=== PATIENT | female | born 1960 | race Caucasian/White ===

== ENCOUNTER 2017-04-08 18:27 | Emergency (ER) | payer OTHER ==
[~2017-04-08 18:27] MED LIST: ALBU1AER INH; BENA25TA8 PO; CYCL-36 PO; DICL50TA3 PO; LORA10TA PO; METF500 PO; NEXI40CA PO; OXYM10 PO; OXYM40TA PO; PROM25TA5 PO; VALI10TA PO
[2017-04-08 18:38] VITALS: BP 124/76; PULSE 90; RESP 18; TEMP 98.3; O2SAT 100
[2017-04-08] MEDS ORDERED: methylPREDNISolone SOD SUCC 125 MG/2 ML VIAL IV PUSH ONE (18:45)
[2017-04-08] MEDS ORDERED: SODIUM CHLORIDE 0.9% FLUSH 10 ML FLUSH IVF PRN (18:45)
--- NOTE | 2017-04-08 18:45 | PD ---
HPI Chief Complaint: Cold / Flu Symptoms Time Seen by Provider: 18:41 Travel History International Travel<30 days: No Contact w/Intl Traveler<30days: No Traveled to known affect area: No History of Present Illness HPI This 56-year-old woman female is complaining of cough and shortness of breath. She has a long history of asthma. She also smokes cigarettes. She was exposed to a youngster that had a respiratory infection and started coughing. She's had a persistent hacking cough. PFSH Past Medical History Hx Anticoagulant Therapy: No Asthma: Yes Anxiety: Yes Depression: Yes High Cholesterol: Yes COPD: Yes Diabetes: Yes Diminished Hearing: No GERD: Yes Herniated Disk: Yes Hypertension: Yes Kidney Stones: Yes Musculoskeletal: Yes (HERNIATED DISC) Respiratory: Yes (COPD, ASTHMA) Migraines: Yes Pneumonia: Yes Thyroid Disease: Yes ("BORDERLINE") Triglycerides - High: Yes : 7 Para: 3 : 4 Tubal Ligation: Yes Past Surgical History Hysterectomy: Yes Oral Surgery: Yes Tonsillectomy: Yes Social History Alcohol Use: No Tobacco Use: Yes (1 PPD) Substance Use: No Allergies-Medications (Allergen,Severity, Reaction): Coded Allergies: butorphanol (Unverified Adverse Reaction, Intermediate, 03/10/17) "MAKES ME WEIRD" Reported Meds & Prescriptions Reported Meds & Active Scripts Active Reported Proair Hfa 8.5 GM Inh (Albuterol Sulfate) 90 Mcg/Act Aer 2 Puff INH Q4HR PRN 108 mcg/actuation Day Time Multi-Symptom (Ywsqcmmpsccpseik-Daswumjcgqedd-Uozlubcd) 10-5-325 Mg Cap 2 Cap PO Q4H PRN Nyquil Severe Cold/Flu Liq (Pnrhsdfgbfazi-Ocgnodogcz-OX-Apap Liq) 5-6.25-10-325 Mg/15 Ml Liq Allergy Relief (Loratadine) 10 Mg Tab 10 Mg PO DAILY Phenergan (Promethazine HCl) 25 Mg Tablet 25 Mg PO TID PRN Flexeril (Cyclobenzaprine HCl) 10 Mg Tab 10 Mg PO BID Oxymorphone (Oxymorphone HCl) 10 Mg Tab 10 Mg PO Q4H PRN Victoza Inj (Liraglutide Inj) 18 Mg/3 Ml Pen 1.8 Mg SQ HS Metformin (Metformin HCl) 500 Mg Tab 500 Mg PO BIDPC With meals Prilosec (Omeprazole Magnesium) 10 Mg Pow Diazepam 10 Mg Tab 10 Mg PO BID PRN Review of Systems General / Constitutional: No: Fever, Chills Eyes: No: Diploplia, Blurred Vision HENT: No: Headaches Cardiovascular: No: Chest Pain or Discomfort Respiratory: Positive: Cough, Shortness of Breath Gastrointestinal: No: Nausea, Vomiting Genitourinary: No: Urgency, Frequency Neurologic: No: Weakness, Dizziness Endocrine: No: Heat Intolerance Hematologic/Lymphatic: No: Easy Bruising Physical Exam Narrative GENERAL: Well-appearing female in mild respiratory distress SKIN: Focused skin assessment warm/dry. HEAD: Atraumatic. Normocephalic. EYES: Pupils equal and round. No scleral icterus. No injection or drainage. ENT: No nasal bleeding or discharge. Mucous membranes pink and moist. NECK: Trachea midline. No JVD. CARDIOVASCULAR: Regular rate and rhythm. No murmur appreciated. RESPIRATORY: No accessory muscle use. Bilateral inspiratory and expiratory rhonchi Breath sounds equal bilaterally. GASTROINTESTINAL: Abdomen soft, non-tender, nondistended. Hepatic and splenic margins not palpable. MUSCULOSKELETAL: No obvious deformities. No clubbing. No cyanosis. No edema. NEUROLOGICAL: Awake and alert. No obvious cranial nerve deficits. Motor grossly within normal limits. Normal speech. PSYCHIATRIC: Appropriate mood and affect; insight and judgment normal. Data Data Last Documented VS Vital Signs Date Time Temp Pulse Resp B/P (MAP) Pulse Ox O2 Delivery O2 Flow Rate FiO2 04/08/17 20:55 98.6 93 18 122/59 (80) 93 Room Air Orders Orders Complete Blood Count With Diff (04/08/17 18:42) Basic Metabolic Panel (Bmp) (04/08/17 18:42) Influenzae A/B Antigen (04/08/17 18:42) Iv Access Insert/Monitor (04/08/17 18:42) Electrocardiogram (04/08/17 18:42) Ecg Monitoring (04/08/17 18:42) Oximetry (04/08/17 18:42) Oxygen Administration (04/08/17 18:42) Chest, Single Ap (04/08/17 18:42) Sodium Chloride 0.9% Flush (Ns Flush) (04/08/17 18:45) Methylprednisolone So Succ Inj (Solumedr (04/08/17 18:45) Albuterol-Ipratropium Neb (Duoneb Neb) (04/08/17 18:45) Ceftriaxone Inj (Rocephin Inj) (04/08/17 20:00) Albuterol-Ipratropium Neb (Duoneb Neb) (04/08/17 20:15) Labs Laboratory Tests Test 04/08/17 19:09 White Blood Count 9.7 TH/MM3 Red Blood Count 4.54 MIL/MM3 Hemoglobin 13.4 GM/DL Hematocrit 39.3 % Mean Corpuscular Volume 86.5 FL Mean Corpuscular Hemoglobin 29.4 PG Mean Corpuscular Hemoglobin Concent 34.0 % Red Cell Distribution Width 13.0 % Platelet Count 299 TH/MM3 Mean Platelet Volume 7.6 FL Neutrophils (%) (Auto) 69.5 % Lymphocytes (%) (Auto) 21.3 % Monocytes (%) (Auto) 5.4 % Eosinophils (%) (Auto) 3.3 % Basophils (%) (Auto) 0.5 % Neutrophils # (Auto) 6.8 TH/MM3 Lymphocytes # (Auto) 2.1 TH/MM3 Monocytes # (Auto) 0.5 TH/MM3 Eosinophils # (Auto) 0.3 TH/MM3 Basophils # (Auto) 0.0 TH/MM3 CBC Comment DIFF FINAL Differential Comment Blood Urea Nitrogen 14 MG/DL Creatinine 0.57 MG/DL Random Glucose 89 MG/DL Calcium Level 9.7 MG/DL Sodium Level 140 MEQ/L Potassium Level 4.0 MEQ/L Chloride Level 101 MEQ/L Carbon Dioxide Level 31.9 MEQ/L Anion Gap 7 MEQ/L Estimat Glomerular Filtration Rate 111 ML/MIN [facility] Medical Decision Making Medical Screen Exam Complete: Yes Emergency Medical Condition: Yes Medical Record Reviewed: Yes Differential Diagnosis Frontal includes COPD exacerbation, asthma exacerbation, pneumonia Narrative Course Chest x-ray is negative for pneumonia. This is COPD exacerbation she'll be given amoxicillin, prednisone Diagnosis Primary Impression: COPD exacerbation Scripts Albuterol 8.5 GM Inh (Proair Hfa 8.5 GM Inh) 90 Mcg/Act Aer 2 PUFF INH Q4-6H Y for SHORTNESS OF BREATH, #1 INHALER 0 Refills 108 mcg/actuation Prov: Constantino Hahn MD 04/08/17 Ipratropium-Albuterol Neb (Duoneb) 0.5-2.5 Mg/3 Ml Neb 1 NEBULE INH Q4HR NEB for SHORTNESS OF BREATH, #120 NEBULE 0 Refills Prov: Constantino Hahn MD 04/08/17 Amoxicillin (Amoxicillin) 500 Mg Cap 500 MG PO TID for Infection for 10 Days, CAP 0 Refills Prov: Constantino Hahn MD 04/08/17 Prednisone (Prednisone) 20 Mg Tab 60 MG PO DAILY for 5 Days, #15 TAB 0 Refills Prov: Constantino Hahn MD 04/08/17 Disposition: 01 DISCHARGE HOME Condition: Stable Constantino Hahn MD Apr 08, 2017 18:45
[2017-04-08] MEDS: RESP: ALBUTEROL 2.5 MG/IPRATROPIUM 0.5 MG NEB (SCH) INH ×3 (18:54→19:10)
[2017-04-08 19:07] VITALS: BP 147/76; PULSE 93; RESP 20; O2SAT 93
--- NOTE | 2017-04-08 19:07 | RADRPT ---
EXAM DATE/TIME: 04/08/2017 18:53 [facility] COMPARISON: CHEST PA & LAT, October 26, 2014, 2:27. INDICATIONS : Short of breath. MEDICAL HISTORY : Chronic obstructive pulmonary disease. Asthma. SURGICAL HISTORY : None. ENCOUNTER: Initial ACUITY: 3 days PAIN SCORE: 0/10 LOCATION: Bilateral chest FINDINGS: A single view of the chest demonstrates the lungs to be symmetrically aerated without evidence of mas s, infiltrate or effusion. The cardiomediastinal contours are unremarkable. Osseous structures are intact. CONCLUSION: No evidence of acute cardiopulmonary disease. David Gramajo MD on April 08, 2017 at 19:05 Board Certified Radiologist. This report was verified electronically.
[2017-04-08 19:30] LABS: AUTOMATED NEUTROPHIL # 6.8 TH/MM3 (1.8-7.7); BASOPHIL % 0.5 % (0.0-2.0); EOSINOPHIL # 0.3 TH/MM3 (0-0.4); EOSINOPHIL % 3.3 % (0.0-4.0); HEMATOCRIT 39.3 % (35.0-46.0); HEMO FLAGS DIFF FINAL; LYMPH % 21.3 % (9.0-44.0); LYMPHOCYTE # 2.1 TH/MM3 (1.0-4.8); MEAN CELL VOLUME 86.5 FL (80.0-100.0); MEAN CORPUSCULAR HEMOGLOBIN 29.4 PG (27.0-34.0); MONO % 5.4 % (0.0-8.0); NEUT % 69.5 % (16.0-70.0); PLATELET COUNT 299 TH/MM3 (150-450); RED BLOOD COUNT 4.54 MIL/MM3 (4.00-5.30); WHITE BLOOD COUNT 9.7 TH/MM3 (4.0-11.0)
[2017-04-08 19:40] LABS: BICARBONATE 31.9 MEQ/L (21.0-32.0)
[2017-04-08 19:47] VITALS: BP 129/75; PULSE 88; RESP 18; O2SAT 96
[2017-04-08] MEDS ORDERED: cefTRIAXone INJ 1,000 MG in SODIUM CHLORIDE 0.9% INJ 100 ML IV ONE (20:00)
[2017-04-08] MEDS ORDERED: RESP: ALBUTEROL 2.5 MG/IPRATROPIUM 0.5 MG NEB (SCH) NEB ONE (20:15)
[2017-04-08] MEDS ORDERED: CYCL1TAB29 PO (20:24)
[2017-04-08] MEDS ORDERED: METF500T PO (20:24)
[2017-04-08] MEDS ORDERED: DIAZ10TA PO (20:24)
[2017-04-08] MEDS ORDERED: ALLE10TA PO (20:24)
[2017-04-08] MEDS ORDERED: [UNRECOGNIZED DRUG - CODE] PO (20:24)
[2017-04-08] MEDS ORDERED: PRIL10PO (20:24)
[2017-04-08] MEDS ORDERED: VICT18IN SQ (20:24)
[2017-04-08] MEDS ORDERED: PHEN1LIQ60 (20:24)
[2017-04-08] MEDS ORDERED: OXYMTAB2 PO (20:24)
[2017-04-08] MEDS ORDERED: PROM25TA10 PO (20:24)
[2017-04-08] MEDS ORDERED: ALBUAER3 INH ×2 (20:32→21:50)
[2017-04-08 20:55] VITALS: BP 122/59; PULSE 93; RESP 18; TEMP 98.6; O2SAT 93
[2017-04-08] MEDS ORDERED: IPRASOL INH (21:50)
[2017-04-08] MEDS ORDERED: PRED20 PO (21:50)
[2017-04-08] MEDS ORDERED: AMOX500C PO (21:50)
[2017-04-08 22:02] VITALS: BP 140/74; TEMP 98.5
--- NOTE | 2017-04-09 20:18 | EKG ---
Date Performed: 04/08/2017 Time Performed: 18:34:42 PTAGE: 56 years EKG: Sinus rhythm NONSPECIFIC T-WAVE CHANGE Compared to prior tracing no significant change NORMAL ECG PREVIOUS TRACING : 10/26/2014 01.57 DOCTOR: Socrates Vivar Interpretating Date/Time 04/09/2017 20:16:40
== END 2017-04-08 22:09 | disposition home or self-care (01) ==
LOC: PHED 18:27
DX: J44.1 Chronic obstructive pulmonary disease with (acute) exacerbation (principal); E11.9 Type 2 diabetes mellitus without complications; I10 Essential (primary) hypertension; E07.9 Disorder of thyroid, unspecified; E78.5 Hyperlipidemia, unspecified; F17.200 Nicotine dependence, unspecified, uncomplicated; Z79.84 Long term (current) use of oral hypoglycemic drugs; Z87.09 Personal history of other diseases of the respiratory system; Z86.59 Personal history of other mental and behavioral disorders; Z87.19 Personal history of other diseases of the digestive system; Z87.39 Personal history of other diseases of the musculoskeletal system and connective tissue; Z87.442 Personal history of urinary calculi; Z86.69 Personal history of other diseases of the nervous system and sense organs
CPT/HCPCS: 71010; 80048; 85025; 87804; 93005; 94640; 94664; 96365; 96375; 99285; J0696; J2930